=== PATIENT | female | born 1960 | race Hispanic/Latino ===

== ENCOUNTER 2022-11-03 09:16 | Day surgery (SDC) | payer BC ==
[2022-10-30 11:03] VITALS: BMI 30.5
[2022-11-03] MEDS ORDERED: Fentanyl 100 MCG/2 ML VIAL ONE (11:16)
[2022-11-03] MEDS ORDERED: PROPOFOL 20 ML ONE (11:16)
[2022-11-03] MEDS ORDERED: Lidocaine 1% PF 5 ML VIAL ONE (11:17)
== END 2022-11-03 12:05 | disposition home or self-care (01) ==
LOC: CSHSDC 09:16
PROVIDERS: ATTEND Surgery
PROC: 0DD68ZX Extraction of Stomach, Via Natural or Artificial Opening Endoscopic, Diagnostic (ICD-10-PCS; principal; 2022-11-03)
DX: K21.9 Gastro-esophageal reflux disease without esophagitis (principal); K29.50 Unspecified chronic gastritis without bleeding; K31.89 Other diseases of stomach and duodenum; I10 Essential (primary) hypertension; E78.5 Hyperlipidemia, unspecified; E88.81 Metabolic syndrome and other insulin resistance; E78.2 Mixed hyperlipidemia; R73.9 Hyperglycemia, unspecified; M89.49 Other hypertrophic osteoarthropathy, multiple sites; R10.31 Right lower quadrant pain; A04.8 Other specified bacterial intestinal infections; E66.01 Morbid (severe) obesity due to excess calories; Z68.37 Body mass index [BMI] 37.0-37.9, adult; T78.49XA Other allergy, initial encounter; R19.06 Epigastric swelling, mass or lump; M15.9 Polyosteoarthritis, unspecified; Z79.899 Other long term (current) drug therapy; Z88.8 Allergy status to other drugs, medicaments and biological substances; Z98.84 Bariatric surgery status
CPT/HCPCS: 88305; J2704; J3010

== ENCOUNTER 2022-11-04 08:34 | Outpatient (CLI) | payer BC | END 2022-11-04 08:35 | disposition home or self-care (01) | LOC: CSHRAD 08:34 | PROVIDERS: ATTEND Surgery | DX: K21.9 Gastro-esophageal reflux disease without esophagitis (principal); K44.9 Diaphragmatic hernia without obstruction or gangrene | CPT/HCPCS: 74246 ==